=== PATIENT | male | born 1980 | race Caucasian/White ===

== ENCOUNTER → 2016-08-17 | Outpatient (CLI) | payer BC | LOC: COL.RAD 13:53 | DX: M24.811 Other specific joint derangements of right shoulder, not elsewhere classified (principal); M25.511 Pain in right shoulder | CPT/HCPCS: A9585; Q9967 ==

== ENCOUNTER → 2019-12-25 | Outpatient (CLI) | payer BC ==
[~2019-12-25] VITALS: Ht 188 cm; Wt 86.6 kg
[~2019-12-25] MED LIST: PRINIVIL10 MG PO
[2019-12-25 13:39] VITALS: BP 146/99; PULSE 82
[2019-12-25 14:30] VITALS: BP 146/96; PULSE 81
--- NOTE | 2019-12-25 14:54 | NUR ---
WENT OVER DC INSTRUCTIONS WITH PT. VERBALIZED UNDERSTANDING. PT WAS TAKEN DOWN TO POV.
== END ==
LOC: COL.RAD 12:45
DX: M51.27 Other intervertebral disc displacement, lumbosacral region (principal)
CPT/HCPCS: J3301

== ENCOUNTER → 2024-06-11 | Outpatient (CLI) | payer BC ==
[~2024-06-11] VITALS: Ht 188 cm; Wt 89.0 kg
[~2024-06-11] MED LIST changes: +CELEXA10 MG PO; +REQUIP 1MG T1 MG/TAB PO; +Triamcinolone 40 MG/ML 1 ML VIAL IJ SCH; +VALIUM 5MG T5 MG/TAB PO
[2024-06-11 12:32] VITALS: BP 135/91; PULSE 81; TEMP 97.6
[2024-06-11 13:45] VITALS: BP 127/82; PULSE 87
== END ==
LOC: COL.RAD 12:06
DX: M54.16 Radiculopathy, lumbar region (principal)
CPT/HCPCS: J0665; J3301